=== PATIENT | male | born 1940 | race Caucasian/White ===

== ENCOUNTER 2017-08-28 16:06 | Inpatient (IN) | payer OTHER ==
[~2017-08-28] VITALS: Ht 152.4 cm; Wt 81.4 kg
--- NOTE | ~2017-08-28 | EKG ---
[place] [address] [facility] [place] [address] ELECTROCARDIOGRAM REPORT Name: MOISÉS MAHAN PRITI Room #: 217-P ADM IN M.R.#: [id number] Admission: 08/28/17 Attend Phys: Preston Singer DO Discharge: Date of : 40 Report #: [id number] THIS REPORT FOR: //name// [facility] ED Test Date: 2017-08-28 Test Time: 16:17:50 Pat Name: MOISÉS MAHAN Department: Room: 217 Gender: M Grounds Foreman: JESSIE : 1940 Requested By: Moisés Moraes Order Number: [id number] MD: Sb Sweet Measurements Intervals [place] Rate: 70 P: 50 WY: 175 QRS: -46 QRSD: 123 T: 48 QT: 468 QTc: 506 Interpretive Statements Sinus rhythm Left bundle branch block No previous ECG available for comparison Electronically Signed On 08-29-2017 8:38:37 AUTO MACHINIST by Sb Sweet [email or web address] <ELECTRONICALLY SIGNED> By: Sb Sweet MD, [facility] 08/29/17 0838 1617 1617 Sb Sweet MD, FACC /EPI
--- NOTE | ~2017-08-28 | HC ---
[facility] [place] [address] CONSULTATION Name: KALLIOMISÉS PRITI Room #: 217-P [facility] IN M.R.#: [id number] Admission: 08/28/17 Attend Phys: Preston Singer DO Discharge: 08/31/17 Date of : 40 Report #: [id number] THIS REPORT FOR: //name// CC: Preston Singer DO [facility] DATE OF SERVICE: 08/29/2017 REFERRING PROVIDER: Preston Singer DO. REASON FOR CONSULTATION: Shortness of breath. CHIEF COMPLAINT: Shortness of breath. HISTORY OF PRESENT ILLNESS: Our group was asked to see this patient in consultation while hospitalized at [facility], a very pleasant 76-year-old male with a past pulmonary history significant for underlying COPD. He does not know the names of his inhalers, but by description it sounds like he take Symbicort twice daily and has a p.r.n. albuterol inhaler, has noted some increasing shortness of breath over the last few days and chronically he has difficulty with shortness of breath with activity. He has had no cough, fevers, muscle aches or chills. His significant other lives with him. He has had some upper respiratory congestion, but no other symptoms. He presented about 5 days ago to urgent care or Emergency Department at [facility] in [place], [place], was given nebulizer treatment, IV steroids and then sent home on prednisone, but patient notes he did not improve at all. He has had some ongoing orthopnea as well, but denies any chest pains. No prior cardiac history. Presented to our Emergency Department in respiratory distress, was brought in by EMS, was placed on BiPAP en route due to severe respiratory distress. This improved. Some systemic steroids also improve his symptoms. Otherwise, still remains very limited, stated he did not sleep well last night due to ongoing shortness of breath and chest tightness. Echocardiogram done earlier today did show some wall motion abnormalities and ejection fraction of 30-35%. Currently, he is resting comfortably in bed, but he notes severe dyspnea on any activity. ALLERGIES: None known. PAST MEDICAL HISTORY: 1. COPD as described in HPI. 2. Remote history of tobacco use. 3. Prostatic hypertrophy with urinary retention issues. OUTPATIENT MEDICATIONS: Recently included prednisone, doxycycline, Symbicort, albuterol inhaler, Proscar, and Flomax. 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 FAMILY HISTORY: Negative for significant pulmonary disease. REVIEW OF SYSTEMS: CONSTITUTIONAL: No fever, chills, or sweats. No change in weight or appetite. ENT: No upper respiratory congestion, rhinorrhea, or dysphagia. CARDIOVASCULAR: No chest pain or palpitations. Exertional dyspnea and orthopnea noted. No lower extremity edema. GASTROINTESTINAL: No nausea, vomiting or abdominal pain. GENITOURINARY: Urinary retention without dysuria. INTEGUMENT: Denies any rash. MUSCULOSKELETAL: Chronic arthritis, but no joint pains or swelling. PSYCHIATRIC: No anxiety or depressive symptoms. PHYSICAL EXAMINATION: VITAL SIGNS: Afebrile, pulse 60s, respiratory rate 18, blood pressure 116/68, oxygen saturation 94% on 2 liters. GENERAL: This is a pleasant elderly male, in no distress. HEENT: Clear oropharynx, Mallampati 2 airway, no thrush, no erythema. NECK: Supple, no lymphadenopathy. LUNGS: Diminished with prolonged expiratory phase, diffuse wheeze noted. CARDIOVASCULAR: Heart was regular. No murmurs. ABDOMEN: Soft, nontender, no masses. EXTREMITIES: Warm, 2+ pulses, no edema. INTEGUMENT: Without rash. LABORATORY DATA: White blood cell count 15,000, hemoglobin 14, hematocrit 43, platelet count 203. Sodium 142, potassium 4.0, chloride 105, bicarbonate 28, BUN 21, creatinine 1.0, glucose 111. Chest x-ray revealed some hyperinflation consistent with COPD. Minimal basilar small amount of pleural thickening or effusions noted. No infiltrates, no edema. No D-dimer was ordered. No coags are ordered. No arterial blood gas. IMPRESSION: Respiratory failure, hypoxemic, improved. Suspect some of this is cardiac in nature, likely related to underlying chronic obstructive pulmonary disease with acute exacerbation. Would be somewhat concerned about pulmonary embolism and we will check a ventilation perfusion scan, but given plans for possible cardiac catheterization, I would not give IV contrast when we do ventilation perfusion scan. His RV function was normal on echo, so I think pulmonary embolism is less likely, but still a concern. Check an arterial blood gas. Continue with systemic steroids, antibiotics and bronchodilators with [facility] [address] [place] [address] CONSULTATION Name: MOISÉS MAHAN Room #: 217-P [facility] IN M.R.#: [id number] Admission: 08/28/17 Attend Phys: Preston Singer, Discharge: 08/31/17 Date of : 40 Report #: [id number] DuoNeb q. 4 hours and add EzPAP. We will follow along with you. No further recommendations at this time, pending results of testing. <ELECTRONICALLY SIGNED> By: Emil Franklin MD 09/13/17 1452 1248 2253 Emil Franklin MD /nt
--- NOTE | ~2017-08-28 | CATHLAB ---
[facility] [address] [place] [address] INVASIVE PROCEDURE REPORT Name: MOISÉS MAHAN Room #: 217-P ADM IN M.R.#: [id number] Admission: 08/28/17 Attend Phys: Preston Singer, Discharge: Date of : 40 Date of Service: 08/29/17 1713 Report #: [id number] THIS REPORT FOR: //name// APPROVED REPORT Patient Details Patient Status: In-Patient Room #: 217 The patient is a 76 year-old male Event Personnel Sb Sweet Elevator Starter, Ezio Hawley RN, Leslie Amor, Meghan Caceres RTR, QUALIFICATION ENGINEER Monitor Procedures Performed Art Access - R femoral artery* Tommie Access - R femoral vein Right and Left Heart Cath w/or w/o Coronarie [id number] [facility] 88914 Initial Mod Sed Same Phys/QHP Gr5y 111775 90359 Mod Sed Same Phys/QHP Ea [id number] Hemostasis w/ Mynx Indication Abnormal ECG, Cardiomyopathy, Chest pain Procedure Narrative The Right Groin^ was infiltrated with subcutaneous anesthesia. A Right Heart Catheterization was performed with a 7 Fr. [place]-M[place] catheter and pressure were recorded. Cardiac outputs were obtained by the Thermal Dilution method. A thesweetlinkNACLE 6FR Sheath #[id number] sheath was inserted into the RFA. Coronary angiography was performed using coronary diagnostic catheters. The right coronary system was accessed and visualized with a JR4 catheter. The left coronary system was accessed and visualized with a JL4.5 catheter. The left ventricle was accessed and visualized with a Pigtail catheter. Left ventricular/Aortic Valve gradient assessed via catheter pullback. Left ventriculogram was performed in 30 degree projection. Pre-demployment femoral angiogram was performed in CHENG. Closure device was deployed with a 6 Fr MYNXGRIP 6/7F #[id number]. The patient tolerated the procedure well and there were no complications associated with the procedure. There was no hematoma. Intraoperative Conscious Sedation Sedation start time: 15:30 Case end Time: 16:10 Versed 1.5 mg Fluoro Time: 4.40 minutes [facility] [place] [address] INVASIVE PROCEDURE REPORT Name: MOISÉS MAHAN Room #: 217-P [facility] IN ..#: [id number] Admission: 08/28/17 Attend Phys: Preston Singer, Discharge: Date of : 40 Date of Service: 08/29/17 1713 Report #: [id number] Dose: DAP 5254.59 cGycm2 212.6 mGy Contrast Type and Amount: Omnipaque 170 ml Coronary Angiography The patient's coronary anatomy is right dominant. Diagnostic Cath Left Main Minimal plaquing LAD The LAD was a large vessel that extended to the apex. There was moderate scattered 30-40% proximal and mid vessel plaquing. Diagonal 1 The first diagonal was small in caliber with moderate proximal plaquing Diagonal 2 Large second diagonal branch with its origin in the mid LAD. The ostium of this diagonal branch exhibited a 50-60% stenosis Circumflex Relatively small and comprised of a single small to moderate size marginal branch. OM1 The first marginal branch exhibited a moderate 40% stenosis Right Coronary Large and dominant. Mild 20-30% mid and distal plaquing R PDA Angiographically normal RPLV large, angiographically normal Left Ventriculography The left ventricle is moderately dilated in size with abnormal contractility. The left ventricular ejection fraction is estimated to be 35%. Left ventricular wall motion abnormalities are present. There is no mitral insufficiency. 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 The right ventricular pressure is 40/4 mmHg. The pulmonary artery pressure is 36/11 mmHg with a mean of 21 mmHg. The mean pulmonary capillary wedge pressure is 16 mmHg. The aortic pressure is 125/49 mmHg with a mean of 80 mmHg. The left ventricular pressure is 107/11 mmHg with a mean of mmHg. The left ventricular end diastolic pressure is 21 mmHg. The cardiac output using thermo method is 3.47 L/min. The cardiac index using thermo method is 1.96 L/min/m2. Conclusion 1. Moderate left ventricular dysfunction with apical ballooning consistent with Takutsobu cardiomyopathy. EF 35% 2. Mild left main plaquing 3. Mild-moderate 3v coronary artery disease [facility] [address] [place] [address] INVASIVE PROCEDURE REPORT Name: MOISÉS MAHAN Room #: 217-P ADM IN M.R.#: [id number] Admission: 08/28/17 Attend Phys: Preston Singer, Discharge: Date of : 40 Date of Service: 08/29/171712 Report #: [id number] 4. Mild elevation in right heart pressures Recommendations Aggressive Medical Therapy <ELECTRONICALLY SIGNED> By: Sb Sweet MD, FACC 08/29/171712 12 12 Sb Sweet MD, FACC /INF
--- NOTE | ~2017-08-28 | 2DMMODE ---
[facility] [address] [place] [address] 2 D/M-MODE ECHOCARDIOGRAM Name: KALLIMOISÉS PRITI Room #: 217-P [facility] IN M.R.#: [id number] Admission: 08/28/17 Attend Phys: Preston Singer, Discharge: Date of : 40 Date of Service: 08/29/17 0917 Report #: [id number] THIS REPORT FOR: //name// APPROVED REPORT Study performed: 08/29/2017 07:57:15 EXAM: Comprehensive 2D, Doppler, and color-flow Echocardiogram Patient Location: Bedside Room #: 217 Status: routine BSA: 1.98 HR: 67 bpm BP: 109/71 mmHg Other Information Study Quality: Good Technically limited study due to lung disease. Indications Chest Pressure COPD Dyspnea 2D Dimensions RVDd: 31.41 mm LVEF(%): 31.51 (>50%) IVSd: 10.65 (7-11mm) LVOT Diam: 19.35 (18-24mm) LVDd: 50.91 mm PWd: 10.66 (7-11mm) Ascending Ao: 36.77 (22-36mm) LVDs: 43.30 (25-40mm) Aortic Root: 35.53 mm IVC: 19.00 mm Sal's LVEF: 31.51 % Volumes Left Atrial Volume (Systole) Single Plane 4CH: 53.30 mL Single Plane 2CH: 46.59 mL LA ESV Index: 33.00 mL/m2 Aortic Valve AoV Peak Enrico.: 1.52 m/s AO Peak Gr.: 9.19 mmHg LVOT Max P.97 mmHg LVOT Max V: 1.22 m/s GAEL Vmax: 2.37 cm2 Mitral Valve [facility] [address] [place] [address] 2 D/M-MODE ECHOCARDIOGRAM Name: MOISÉS MAHAN PRITI Room #: 217-P [facility] IN M.R.#: [id number] Admission: 08/28/17 Attend Phys: Preston Singer, Discharge: Date of : 40 Date of Service: 08/29/17 0917 Report #: [id number] E/A Ratio: 0.5 MV Decel. Time: 318.98 ms MV E Max Enrico.: 0.48 m/s MV A Enrico.: 0.94 m/s MV PHT: 92.50 ms IVRT: 101.50 ms Pulmonary Valve PV Peak Enrico.: 1.16 m/s PV Peak Gr.: 5.42 mmHg Pulmonary Vein P Vein S: 0.41 m/s P Vein A: 0.35 m/s P Vein D: 0.26 m/s P Vein A Dur.: 143.0 msec P Vein S/D Ratio: 1.58 Tricuspid Valve TR Peak Enrico.: 3.52 m/s RAP Estimate: 5.00 mmHg TR Peak Gr.: 49.48 mmHg PA Pressure: 55.00 mmHg Left Ventricle The left ventricle is normal size. There is normal left ventricular wall thickness. Left ventricular systolic function is moderate to severely decreased. LVEF is 30-35%. Extensive septal, inferior, and inferolateral hypokinesis Mild diastolic dysfunction is present (impaired relaxation pattern). Right Ventricle The right ventricle is normal size. The right ventricular systolic function is normal. Atria The left atrium size is normal. Right atrium is at the upper limits of normal. Aortic Valve The aortic valve is sclerotic, trileaflet No aortic regurgitation is present. There is no aortic valvular stenosis. Mitral Valve Mild mitral annular calcification. Trace mitral regurgitation. No evidence of mitral valve stenosis. Tricuspid Valve The tricuspid valve is normal in structure. Moderate tricuspid regurgitation. PAP is estimated at 55 mmHg. [facility] [address] [place] [address] 2 D/M-MODE ECHOCARDIOGRAM Name: MOISÉS MAHAN Room #: 217-P ADM IN M.R.#: [id number] Admission: 08/28/17 Attend Phys: Preston Singer, Discharge: Date of : 40 Date of Service: 08/29/17 0917 Report #: [id number] Pulmonic Valve The pulmonary valve is normal in structure. There is no pulmonic valvular regurgitation. Great Vessels The aortic root is normal in size. IVC is normal in size and collapses >50% with inspiration. Pericardium There is no pericardial effusion. <Conclusion> Left ventricular systolic function is moderate to severely decreased. LVEF is 30-35%. Extensive septal, inferior, and inferolateral hypokinesis Mild diastolic dysfunction is present (impaired relaxation pattern). The aortic valve is sclerotic, trileaflet. No aortic valvular stenosis or insufficiency Mild mitral annular calcification. Trace mitral regurgitation. Moderate tricuspid regurgitation. Pulmonary artery pressure estimated at 55 mmHg. There is no pericardial effusion. <ELECTRONICALLY SIGNED> By: Sb Sweet MD, FACC 08/29/17916 6 6 Sb Sweet MD, FACC /INF
[2017-08-28 16:08] VITALS: BP 167/96
[2017-08-28] MEDS ORDERED: FLOMAX0.4 MG PO (16:16)
[2017-08-28] MEDS ORDERED: PROSTATE MED (16:16)
[2017-08-28] MEDS ORDERED: INHALER (16:17)
[2017-08-28 16:27] LABS: BASOPHILS 0.2 % (0.0-2.0); HEMATOCRIT 44.4 % (42.0-52.0); HEMOGLOBIN 14.9 gm/dL (14.0-18.0); LYMPHOCYTES 21.6 % (24.0-44.0); MCH 30.3 pg (26.0-34.0); MCHC 33.5 g/dL (28.0-37.0); MCV 90.6 fL (80.0-100.0); MONOCYTES 8.7 % (1.0-8.0); PLATELET COUNT 235 thou/uL (150-400); POLYS 69.5 % (36.0-66.0); RBC 4.91 mil/uL (4.50-6.00); RDW 13.5 % (10.5-14.5); WBC 8.7 thou/uL (4.0-11.0)
[2017-08-28 16:41] LABS: CALCIUM 9.2 mg/dL (8.5-10.1); CREATININE 0.9 mg/dL (0.7-1.3); POTASSIUM 3.6 mmol/L (3.5-5.1)
[2017-08-28 16:48] LABS: TROPONIN-I 0.08 ng/mL (<0.06)
[2017-08-28] MEDS ORDERED: PREDNISONE 20 M20 MG PO (17:57)
[2017-08-28] MEDS ORDERED: ALBUTEROL2.5 MG/31 INH ×3 (17:57→22:07)
[2017-08-28] MEDS ORDERED: DOXYCYCLINE 10100 MG PO (17:58)
[2017-08-28] MEDS ORDERED: SYMBICORT80 MCG/4.1 INH (17:58)
[2017-08-28] MEDS ORDERED: PROSCAR 5MG TABL5 MG PO (17:59)
[2017-08-28 18:30] LABS: CHOLESTEROL 176 mg/dL (<200); HDL CHOLESTEROL 68 mg/dL (>40); LDL CHOLESTEROL 86 mg/dL (<100); TC:HDL 2.6 Ratio (Not establshd); TRIGLYCERIDE 111 mg/dL (<150); VLDL 22 mg/dL (<40)
[2017-08-28 19:11] VITALS: BP 148/79
[2017-08-29] VITALS (7 sets, daily range): BP systolic 108–147; BP diastolic 68–93
[2017-08-29 03:24] LABS: ABSOLUTE NEUTROPHILS 11.5 thou/uL (1.4-8.2); BASOPHILS 0.4 % (0.0-2.0); EOSINOPHILS 0.1 % (0.0-3.0); HEMATOCRIT 42.5 % (42.0-52.0); HEMOGLOBIN 14.2 gm/dL (14.0-18.0); LYMPHOCYTES 13.4 % (24.0-44.0); MCH 30.3 pg (26.0-34.0); MCHC 33.4 g/dL (28.0-37.0); MCV 90.8 fL (80.0-100.0); MONOCYTES 7.4 % (1.0-8.0); PLATELET COUNT 203 thou/uL (150-400); POLYS 78.7 % (36.0-66.0); RBC 4.68 mil/uL (4.50-6.00); RDW 13.6 % (10.5-14.5); WBC 14.6 thou/uL (4.0-11.0)
[2017-08-29 03:34] LABS: CALCIUM 8.7 mg/dL (8.5-10.1)
[2017-08-29 13:59] LABS: BE(vivo) -1.2 mmol/L (-2 to +3); HCO3 21.5 mmol/L (22.0-26.0); PCO2 30.8 mmHg (35.0-45.0); PO2 75.7 mmHg (80.0-100.0); pH 7.461 (7.360-7.450)
[2017-08-30 00:16] VITALS: BP 111/72
[2017-08-30 04:12] VITALS: BP 113/67
[2017-08-30 05:10] LABS: CALCIUM 8.9 mg/dL (8.5-10.1); POTASSIUM 3.5 mmol/L (3.5-5.1)
[2017-08-30] MEDS ORDERED: SYMBICORT80 MCG/4.1 INH (09:36)
[2017-08-30] MEDS ORDERED: COZAAR 25 MG TA25 M1 PO (09:36)
[2017-08-30] MEDS ORDERED: LASIX 40 MG TAB40 M1 PO (09:36)
[2017-08-30] MEDS ORDERED: METOPROLOL SUCC25 M1 PO (09:36)
[2017-08-30] MEDS ORDERED: ASPIR 8181 MG PO (09:36)
[2017-08-30] MEDS ORDERED: RESTORIL7.5 MG PO (09:38)
[2017-08-30 16:05] VITALS: BP 125/72
[2017-08-30 20:13] VITALS: BP 138/63
[2017-08-31 04:53] VITALS: BP 109/74
[2017-08-31 07:45] VITALS: BP 131/89
[2017-08-31] MEDS ORDERED: VALIUM5 MG PO (08:11)
[2017-08-31 09:33] VITALS: BP 131/89
[2017-09-03 17:09] LABS: ADENOVIRUS Negative (Negative); INFLUENZA A Negative (Negative); INFLUENZA B Negative (Negative); METAPNEUMOVIRUS Negative (Negative); PARAINFLUENZA 1 Negative (Negative); PARAINFLUENZA 2 Negative (Negative); PARAINFLUENZA 3 Negative (Negative); RHINOVIRUS Negative (Negative); RSV A Negative (Negative)
[2017-09-05 00:12] LABS: RSV B Positive (Negative)
== END 2017-08-31 10:49 | disposition home or self-care (01) | DRG 286 ==
LOC: ER 16:06 → 2N 17:56 → EROBS 17:56 → 2N 18:41
PROVIDERS: Emergency Medicine; Family Medicine; Internal Medicine; Internal Medicine Pulmonary Disease
PROC: B2151ZZ Fluoroscopy of Left Heart using Low Osmolar Contrast (ICD-10-PCS; principal; 2017-08-29)
PROC: B2111ZZ Fluoroscopy of Multiple Coronary Arteries using Low Osmolar Contrast (ICD-10-PCS; principal; 2017-08-29)
PROC: 4A023N8 Measurement of Cardiac Sampling and Pressure, Bilateral, Percutaneous Approach (ICD-10-PCS; principal; 2017-08-29)
DX: R07.9 Chest pain, unspecified (principal); J96.91 Respiratory failure, unspecified with hypoxia; J44.9 Chronic obstructive pulmonary disease, unspecified; N40.0 Benign prostatic hyperplasia without lower urinary tract symptoms; F41.9 Anxiety disorder, unspecified; E78.5 Hyperlipidemia, unspecified; Z79.899 Other long term (current) drug therapy; Z87.891 Personal history of nicotine dependence; Z82.49 Family history of ischemic heart disease and other diseases of the circulatory system
CPT/HCPCS: 10081